=== PATIENT | male | born 1950 | race Caucasian/White ===

== ENCOUNTER → 2022-09-22 10:55 | Outpatient (CLI) | payer MEDICARE, OTHER, SELFPAY ==
--- NOTE | 2022-09-22 | DI.MRI.S_ITS ---
PROCEDURE: MR THORACIC SPINE WO CON INDICATIONS: thoracic vertebra fx TECHNIQUE: Noncontrast sagittal T1 spine echo and T2 fast spin echo, sagittal STIR, and T2 fast spin echo through the thoracic spine. COMPARISON: None. FINDINGS: Acute T12 compression fracture with approximately 50% height loss centrally and anteriorly. No associated spinal canal stenosis. Mild neural foraminal narrowing at T11-T12 and T12-L1. No spinal canal or neural foraminal stenosis otherwise in the thoracic spine. Regional soft tissues normal. Thoracic cord is normal. IMPRESSION: Acute T12 compression fracture with 50% height loss. No associated spinal canal stenosis. Dictated by: Crow Hampton M.D. on 09/22/2022 at 15:08 Approved by: Crow Hampton M.D. on 09/22/2022 at 15:09
== END ==
PROVIDERS: PCP Student in an Organized Health Care Education/Training Program; Referring Provider Student in an Organized Health Care Education/Training Program; Visit Provider Student in an Organized Health Care Education/Training Program
DX: S22.000A Wedge compression fracture of unspecified thoracic vertebra, initial encounter for closed fracture (principal); Z13.820 Encounter for screening for osteoporosis; M85.852 Other specified disorders of bone density and structure, left thigh
CPT/HCPCS: 72146; 77080

== ENCOUNTER → 2025-02-02 12:12 | Outpatient (CLI) | payer MEDICARE, OTHER, SELFPAY ==
--- NOTE | 2025-02-02 12:14 | DI.US.S_ITS ---
PROCEDURE: US CAROTID DOPPLER BI INDICATIONS: STENOSIS TECHNIQUE: Color and pulse Doppler interrogation was performed of both carotid systems, with image documentation and velocity measurements. COMPARISON: None. FINDINGS: Stenosis calculations are based on SRU (Society of Radi[employer] in Ultras[employer]) criteria. Right side: Brachial blood pressure: 134/64 mm Hg. Common carotid artery peak systolic velocity: 62 cm/sec. Internal carotid artery peak systolic velocity: 83 cm/sec. Internal carotid artery end diastolic velocity: 25 cm/sec. External carotid artery peak systolic velocity: 58 cm/sec. ICA/CCA peak systolic ratio: 1.35. Encarnacion scale imaging description: Mild atherosclerotic calcifications involving origin of right internal carotid artery is seen. Percent internal carotid artery stenosis: Less than 50%. Vertebral artery: Flow direction is antegrade. Left side: Brachial blood pressure: 145/65 mm Hg. Common carotid artery peak systolic velocity: 83 cm/sec. Internal carotid artery peak systolic velocity: 82 cm/sec. Internal carotid artery end diastolic velocity: 28 cm/sec. External carotid artery peak systolic velocity: 39 cm/sec. ICA/CCA peak systolic ratio: 0.99. Encarnacion scale imaging description: Mild atherosclerotic calcifications involving distal left common carotid artery is seen. Percent internal carotid artery stenosis: Less than 50%. Vertebral artery: Flow direction is antegrade. IMPRESSION: 1. In the right carotid artery, there is less than 50% stenosis based on peak systolic velocity criteria. 2. In the left carotid artery, there is less than 50% stenosis based on peak systolic velocity criteria. 3. Antegrade vertebral arteries. Dictated by: Doe Rivero M.D. on 02/03/2025 at 11:29 Approved by: Doe Rivero M.D. on 02/03/2025 at 11:31
--- NOTE | 2025-02-02 12:14 | DI.ECHO.S_ITS ---
[facility] : : [address] : : [place] : : [id number] : : Phone: [phone] Echocardiogram Report + + :Name: GEENA DAVIDSON JR Study Date: 02/02/2025 Height: 71 in : :[facility] ReadingLocation: Weight: 198 lb : : Gender: Male BSA: 2.1 m2 : :: 1950 Age: 74 yrs BP: 114/71 mmHg: :Reason For Study: STENOSIS : :Ordering Physician: NILE SUTTON Performed By: Crow Gutierrez : :Referring: UNSPECIFIED : + + Interpretation Summary Normal sinus rhythm. Normal LV size and wall thickness; normal wall motion and LV systolic function. EF is 55-60%. Normal chamber sizes. Aortic valve is a trileaflet structure with moderately thickened and calcified leaflets. There is mild aortic stenosis with peak velocity of 2.9 m/sec and mean gradient of 18 mm Hg; there is mild associated aortic regurgitation. Otherwise there are no significant valvular abnormalities. Mildly enlarged ascending aorta. No prior study available for comparison. Procedure: A two-dimensional transthoracic echocardiogram with color flow and Doppler was performed. The study quality was technically good. There is no prior echocardiogram noted for this patient. The patient was in normal sinus rhythm during the exam. Left Ventricle: The left ventricle is normal in size. There is normal left ventricular wall thickness. There is no ventricular septal defect visualized. The ejection fraction is estimated to be 55-60%. There are no focal wall motion abnormalities. Diastolic parameters suggest probable normal left ventricular diastolic function and normal filling pressures. Right Ventricle: The right ventricle is normal in size and function. Atria: The left atrial size is normal. The right atrium is mildly dilated. There is no Doppler evidence for an interatrial shunt. Mitral Valve: There is mild mitral annular calcification. The mitral valve leaflets are mildly calcified. There is no mitral regurgitation noted. Aortic Valve: The aortic valve is trileaflet. The aortic valve is moderately calcified. There is mild aortic stenosis. The peak aortic velocity is 2.9 m/sec. The aortic valve mean gradient is 18.3 mmHg. There is mild aortic regurgitation. Tricuspid Valve: The tricuspid valve leaflets are thin and pliable. No tricuspid regurgitation. Pulmonic Valve: The pulmonic valve leaflets are thin and pliable; valve motion is normal. There is trace pulmonic regurgitation. Great Vessels: The aortic root is normal size. The ascending aorta is mildly enlarged. The pulmonary artery is normal size. The inferior vena cava appeared normal. Pericardium/ Pleura There is no pericardial effusion. There is no pleural effusion. MMode/2D Measurements & Calculations LVIDd: 5.3 cm LVOT diam: 2.0 cm LVIDs: 3.5 cm Ao root diam: 3.5 cm FS: 33.8 % asc Aorta Diam: 3.9 cm EPSS: 0.88 cm IVSd: 1.0 cm LVPWd: 1.0 cm LV love. diameter/BSA (cm/m^2): 2.5 LV sys. diameter/BSA (cm/m^2): 1.7 LA A2 area: 17.3 cm2 RA long axis: 5.3 cm LA A4 area: 18.6 cm2 RA area: 19.5 cm2 LA length (vol): 6.1 cm RA vol: 60.8 ml LA vol: 44.7 ml RA : 28.9 ml/m2 LA vol index: 21.3 ml/m2 IVC diam: 1.8 cm RVD1 (basal): 3.7 cm RVD2 (mid): 3.1 cm TAPSE: 2.7 cm Doppler Measurements & Calculations Ao V2 max: 290.1 cm/sec LVOT Max Diego: 127.1 cm/sec Ao V2 mean: 201.3 cm/sec LV V1 max P.5 mmHg Ao max P.7 mmHg LV V1 VTI: 29.3 cm Ao mean P.3 mmHg ORTEGA(I,D): 1.2 cm2 Ao V2 VTI: 71.2 cm ORTEGA(V,D): 1.3 cm2 sev ratio: 0.41 ORTEGA indexed to BSA (cm^2/m^2): 0.59 MV E max diego: 86.1 cm/sec PA V2 max: 139.9 cm/sec MV A max diego: 74.0 cm/sec PA V2 mean: 80.0 cm/sec MV E/A: 1.2 PA mean P.1 mmHg Med Peak E' Diego: 8.9 cm/sec PA pr(Accel): 58.4 mmHg E/E' med: 9.7 Lat Peak E' Diego: 9.3 cm/sec E/E' lat: 9.2 E/e' average: 9.5 MV dec time: 0.17 sec SV(LVOT): 88.2 ml Electronically signed by: Evelia Win M.D. on Reading Physician:02/03/2025 12:01 AM
== END ==
LOC: ECHO 12:13
PROVIDERS: PCP Student in an Organized Health Care Education/Training Program
DX: I65.23 Occlusion and stenosis of bilateral carotid arteries (principal); I35.2 Nonrheumatic aortic (valve) stenosis with insufficiency; I77.89 Other specified disorders of arteries and arterioles; R01.1 Cardiac murmur, unspecified; I10 Essential (primary) hypertension; Z87.891 Personal history of nicotine dependence; Z82.3 Family history of stroke
CPT/HCPCS: 93306; 93880